=== PATIENT | male | born 1955 | race Caucasian/White ===

== ENCOUNTER 2017-09-22 12:50 | Outpatient (CLI) | payer BC ==
--- NOTE | 2017-09-22 13:22 | RAD ---
LUMBAR SPINE FOUR VIEWS: INDICATIONS: Lower back pain. Radiation to right leg. FINDINGS: In the AP projection, there is mild scoliotic curvature to the right, with apex at L1, measured at ap proximately 12 degrees. On the lateral view, the lumbar vertebrae maintain height and alignment. Th e disk spaces are maintained. Mild facet hypertrophy at L3-L4, L4-L5, and L5-S1. Mild spurring in t he lower thoracic and upper lumbar vertebrae. Slight anterolisthesis at L4-L5 does not appear to sig nificantly change with flexion or extension. IMPRESSION: Mild degenerative change of the lumbar spine with slight curvature to the right, as described above. POS: [facility]
== END 2017-09-22 12:51 | disposition home or self-care (01) ==
LOC: TBSIIMAG 12:50
PROVIDERS: ATTEND Surgery
DX: M47.26 Other spondylosis with radiculopathy, lumbar region (principal); M41.9 Scoliosis, unspecified
CPT/HCPCS: 72110

== ENCOUNTER 2017-11-16 08:35 | Day surgery (SDC) | payer BC ==
[2017-11-15 10:48] VITALS: BMI 32.3
[2017-11-16] MEDS ORDERED: Bacitracin Zinc Ointment 30 gm TUBE ONE (09:29)
[2017-11-16] MEDS ORDERED: Sodium Chloride 0.9% 10 ML ONE (09:29)
[2017-11-16] MEDS ORDERED: Thrombin 5000 UNITS/5 ML VIAL ONE (09:29)
[2017-11-16] MEDS ORDERED: CEFAZOLIN/Water 2 GM/20 ML SYRINGE ONE (09:46)
[2017-11-16] MEDS ORDERED: Midazolam HCl 2 mg/2 ml Vial ONE (09:46)
[2017-11-16 09:47] LABS: #Basophils 0.1 thou/uL (0.0-0.2); #Eosinphils 0.2 thou/uL (0.0-0.7); #Lymphocytes 1.9 thou/uL (1.20-3.40); #Monocytes 0.5 thou/uL (0.11-0.59); #Neutrophils 2.9 thou/uL (1.40-6.50); %Basophils 1.3 % (0.0-1.0); %Eosinophils 3.8 % (0.0-10.0); %Lymphocytes 34.1 % (21.0-51.0); %Monocytes 8.4 % (0.0-10.0); %Neutrophils 52.4 % (42.0-75.0); Hemoglobin 15.6 g/dL (14.0-18.0); Mean Corpuscular HGB CONC 33.2 g/dL (32.0-36.0); Mean Corpuscular Hemoglobin 29.8 pg (27.0-31.0); Mean Corpuscular Volume 89.7 fL (78.0-98.0); Mean Platelet Volume 6.1 fL (7.4-10.4); Platelet Count 249 thou/uL (130-400); RBC Distribution Width 11.9 % (11.5-14.5); Red Blood Cell (RBC) Count 5.25 mill/uL (4.70-6.10); White Blood Cell (WBC) Count 5.6 thou/uL (4.8-10.8)
[2017-11-16 09:59] LABS: INR-International Normal Ratio 1.1; Prothrombin Time 13.9 SEC (12.0-14.7)
[2017-11-16 10:00] LABS: PTT 27.8 SEC (22.9-36.1)
[2017-11-16 10:07] LABS: Anion Gap 9 mmol/L (10-20); BUN (Urea Nitrogen) 10 mg/dL (8.4-25.7); Calc. Creatinine Clearance 124 mL/min (70-130); Calcium 9.2 mg/dL (7.8-10.44); Carbon Dioxide 27 mmol/L (23-31); Chloride 108 mmol/L (98-107); Estimated GFR-MDRD 87; Glucose 100 mg/dL (80-115); Sodium 140 mmol/L (136-145)
[2017-11-16] MEDS ORDERED: Fentanyl 100 MCG/2 ML VIAL ONE ×2 (10:23→13:20)
[2017-11-16] MEDS ORDERED: tiZANidine HCl 4 MG TAB PO PRN (13:08)
[2017-11-16] MEDS ORDERED: Acetaminophen 325 MG TAB PO PRN (13:08)
[2017-11-16] MEDS ORDERED: Fleet Enema 133 ML BOT PR PRN (13:08)
[2017-11-16] MEDS ORDERED: traMADol HCl 50 MG TAB PO PRN (13:08)
[2017-11-16] MEDS ORDERED: Mag-Al 1200 mg/1200 mg/30 ML UDCUP PO PRN (13:08)
[2017-11-16] MEDS ORDERED: Milk Of Magnesia 30 ML UDCUP PO PRN (13:08)
[2017-11-16] MEDS ORDERED: Bisacodyl 10 MG SUPP PR PRN (13:08)
[2017-11-16] MEDS ORDERED: Promethazine HCl 25 MG/ML VIAL IM PRN (13:08)
[2017-11-16] MEDS ORDERED: PHENYLEPHRINE-NS 100 MCG/ML 10 ML SYRINGE ONE (14:58)
[2017-11-16] MEDS ORDERED: Dexamethasone 20 MG/5 ML VIAL ONE (14:58)
[2017-11-16] MEDS ORDERED: PROPOFOL 200 MG/20 ML VIAL ONE (14:58)
[2017-11-16] MEDS ORDERED: Lidocaine 1% PF 5 ML VIAL ONE (14:58)
[2017-11-16] MEDS ORDERED: Glycopyrrolate 0.2 MG/ML 5 ML SYRINGE ONE (14:58)
[2017-11-16] MEDS ORDERED: Ondansetron HCl/PF 4 MG/2 ML Vial ONE (14:58)
[2017-11-16] MEDS ORDERED: ePHEDrine/0.9% NaCl/PF SYRINGE 50 mg/10 ml ONE (14:58)
[2017-11-16] MEDS: Sodium Chloride 0.9% 1,000 ML IV SCH (15:34)
[2017-11-16] MEDS ORDERED: CILOSTAZOL 50 MG PO SCH (16:30)
--- NOTE | 2017-11-16 16:34 | OP ---
OR: 11 TYPE: Type 1 wound. SURGEON: Dr. Trevor Leal. PARACHUTE OFFICER: Shivam Guerra PA-C. PREPROCEDURE DIAGNOSES: Right L4-L5 epidural mass, likely synovial cyst versus cystic disk extrusion . POSTPROCEDURE DIAGNOSES: Right L4-L5 synovial cyst, right L5 nerve root compression (atypical locati on). PROCEDURES PERFORMED: 1. Right L4-L5 hemilaminotomy, foraminotomy, and diskectomy. 2. Right L4-L5 synovial cystectomy. 3. Use of operative microscope for microdissection. DESCRIPTION OF PROCEDURE: After informed consent was obtained from the patient, the patient brought to OR 11. Proper patient pause and identification was carried out. He was placed under excellent ge neral endotracheal anesthesia and positioned prone on the operating room table. Proper positioning a nd padding was provided and a linear ning was made over the L4-L5 dorsal spine. This region was ster ilely cleansed, prepared, and draped. Proper patient pause and identification was carried out. The wound was then opened with a combination of sharp, monopolar and blunt dissection, and proceeded over the right L4-L5 hemilamina. Localization film confirmed our area of interest. Microscope was broug ht in the field for microdissection, right L4-L5 hemilaminotomy, foraminotomy was performed. The rig ht L5 nerve root was identified and a cystic material was identified, but somewhat cartilaginous adhe red to the nerve root. This was gently teased off. I then followed ventral to the nerve root as the MRI indicated that it had not a ventral location with solid and cystic components. I strongly suspe ct it is synovial cyst; however, I wanted to make sure that there was no entry into the disk space an d as such annulotomy was performed and disk material removed. It appeared to be more consistent with a synovial cyst with somewhat solid and cystic components rather than an extruded cystic disk fragme nt. Nevertheless, I assured both ventral and dorsal freedom of the nerve root. Copious irrigation o ccurred throughout as did maximizing hemostasis. There was no spinal fluid leak and the wound was cl osed in anatomic layers following sprinkle of vancomycin powder. The patient then emerged from anest hesia.
[2017-11-16] MEDS: HYDROcodone/Acetaminophen 7.5/325 mg Tablet PO PRN ×2 (16:45→23:10)
[2017-11-16] MEDS: CEFAZOLIN/Water 2 GM/20 ML SYRINGE SLOW IVP SCH (17:49)
[2017-11-16] MEDS ORDERED: VITAMIN K2 PO SCH (21:00)
[2017-11-16] MEDS ORDERED: GLYCINE PO SCH (21:00)
[2017-11-16] MEDS ORDERED: ZINC GLUCONATE ZINC PICOLINATE 30 MG PO SCH (21:00)
[2017-11-16] MEDS ORDERED: MAGNESIUM AMINO ACID CHELATE PO SCH (21:00)
[2017-11-17] MEDS: CEFAZOLIN/Water 2 GM/20 ML SYRINGE SLOW IVP SCH (02:19)
[2017-11-17] MEDS: Sodium Chloride 0.9% 1,000 ML IV SCH (02:31)
[2017-11-17] MEDS ORDERED: Liothyronine Sodium 25 MCG TAB PO SCH (06:00)
[2017-11-17] MEDS ORDERED: Levothyroxine 150 MCG TAB PO SCH (06:00)
[2017-11-17] MEDS ORDERED: LIOTHYRONINE SODIUM PO SCH (06:00)
[2017-11-17 07:29] VITALS: BP 131/81; TEMP 97.9
[2017-11-17] MEDS: HYDROcodone/Acetaminophen 7.5/325 mg Tablet PO PRN (08:55)
[2017-11-17] MEDS ORDERED: Lactinex Tablet PO SCH (09:00)
--- NOTE | 2017-11-17 10:27 | PRG ---
DATE OF SERVICE: 11/17/2017 SUBJECTIVE: Mr. Kirkland is postoperative day #1 from right L4-L5 synovial cyst resection and diskectom y with decompression of the right L4 and right L5 nerve roots. He is doing very well with essentiall y resolution in his leg pain with good strength. He is mobilizing and has met criteria for dismissal . We will discharge him home.
--- NOTE | 2017-11-27 17:49 | EKG ---
Test Reason : PREOP Blood Pressure : / mmHG Vent. Rate : 060 BPM Atrial Rate : 060 BPM P-R Int : 150 ms QRS Dur : 086 ms QT Int : 416 ms P-R-T Axes : 047 012 012 degrees QTc Int : 416 ms Normal sinus rhythm Normal ECG No previous ECGs available Confirmed by DR. Candida AVELAR ([id number]) on 11/27/2017 5:48:37 PM Referred By: WENDY Confirmed By:DR. Candida AVELAR
== END 2017-11-17 09:45 | disposition home or self-care (01) ==
LOC: SDC 08:35 → SURG A 13:59 → SDC 11-17 09:45
PROVIDERS: ATTEND Surgery
PROC: 0QB00ZZ Excision of Lumbar Vertebra, Open Approach (ICD-10-PCS; principal; 2017-11-17)
PROC: 01NB0ZZ Release Lumbar Nerve, Open Approach (ICD-10-PCS; principal; 2017-11-17)
PROC: 0ST20ZZ Resection of Lumbar Vertebral Disc, Open Approach (ICD-10-PCS; principal; 2017-11-17)
DX: M71.38 Other bursal cyst, other site (principal); M54.16 Radiculopathy, lumbar region; M48.061 Spinal stenosis, lumbar region without neurogenic claudication; Z79.899 Other long term (current) drug therapy; Z79.82 Long term (current) use of aspirin
CPT/HCPCS: 36415; 76001; 80048; 85025; 85610; 85730; 93005; 93010; 96374; A4216; J0131; J1100; J2001; J2250; J2270; J2405; J2704; J3010; J3370; J3490